=== PATIENT | male | born 1960 | race Hispanic/Latino ===

== ENCOUNTER 2021-02-24 14:14 | Outpatient (CLI) | payer BC | END 2021-02-24 14:15 | disposition home or self-care (01) | LOC: BICULT 14:14 | PROVIDERS: ATTEND Family Medicine | DX: N50.89 Other specified disorders of the male genital organs (principal); N43.3 Hydrocele, unspecified | CPT/HCPCS: 76870; 93976 ==

== ENCOUNTER 2021-07-05 10:28 | Outpatient (CLI) | payer BC ==
[2021-07-05 12:31] LABS: Bilirubin Neg (Negative); Blood, Urine Negative (Negative); Clarity Clear (Clear); Glucose, Urine (Dipstick) Normal (Negative); Ketone, Urine Negative (Negative); Leukocyte Negative (Negative); Nitrite Negative (Negative); Protein, Urine (Dipstick) Negative (Neg-Trace)
[2021-07-05 12:41] LABS: Hemoglobin 14.7 g/dL (13.5-17.5); Mean Corpuscular HGB CONC 33.6 g/dL (32.0-36.0); Mean Corpuscular Hemoglobin 30.4 pg (27.0-33.0); Mean Corpuscular Volume 90.5 fl (81.2-95.1); Mean Platelet Volume 12.3 fl (7.4-10.4); Platelet Count 159 10x3/uL (150-450); RBC Distribution Width 12.4 % (11.5-14.5); Red Blood Cell (RBC) Count 4.84 10x6/uL (4.32-5.72); White Blood Cell (WBC) Count 8.4 10x3/uL (3.5-10.5)
[2021-07-05 12:51] LABS: PTT 25.4 sec (22.0-33.0); Prothrombin Time 10.7 sec (9.5-12.1)
[2021-07-05 12:55] LABS: Anion Gap 12 mmol/L (10-20); BUN (Urea Nitrogen) 20 mg/dL (8.4-25.7); Calc. Creatinine Clearance 0 mL/min (70-130); Calcium 8.5 mg/dL (7.8-10.44); Carbon Dioxide 24 mmol/L (22-29); Chloride 106 mmol/L (98-107); Glucose 115 mg/dL (70-105); Potassium 3.8 mmol/L (3.5-5.1); Sodium 138 mmol/L (136-145)
[2021-07-05 13:07] LABS: Bacteria/HPF None Seen HPF (None Seen); RBC/HPF None Seen HPF (0-3); Squamous Epithelial 0-3 HPF (0-3); WBC/HPF None Seen HPF (0-3)
[2021-07-05 22:50] LABS: SARS-CoV-2 PCR by NAA Not Detected (NotDetected)
== END 2021-07-05 10:29 | disposition home or self-care (01) ==
LOC: LABBT 10:28
PROVIDERS: ATTEND Urology
DX: Z01.818 Encounter for other preprocedural examination (principal); N43.3 Hydrocele, unspecified; E11.9 Type 2 diabetes mellitus without complications; N52.9 Male erectile dysfunction, unspecified; E66.01 Morbid (severe) obesity due to excess calories; Z20.822 Contact with and (suspected) exposure to COVID-19
CPT/HCPCS: 80048; 81001; 85027; 85610; 85730; 87086; 93005; 93010; U0003; U0005

== ENCOUNTER 2021-07-08 05:44 | Day surgery (SDC) | payer BC ==
[2021-07-06 14:14] VITALS: BMI 40.4
[2021-07-08] MEDS ORDERED: ceFAZolin 2 GM/DEX 5% 100 ML BAG ONE (06:06)
[2021-07-08] MEDS ORDERED: Fentanyl 100 MCG/2 ML VIAL ONE (06:34)
[2021-07-08] MEDS ORDERED: SUGAMMADEX SODIUM 200 MG/2 ML VIAL ONE (06:35)
[2021-07-08] MEDS ORDERED: Phenylephrine 10 MG/ML VIAL ONE (06:35)
[2021-07-08] MEDS ORDERED: Bupivacaine 0.25% HCL 30 ML VIAL ONE (06:40)
[2021-07-08] MEDS ORDERED: Ondansetron PF 4 MG/2 ML Vial ONE (07:39)
[2021-07-08] MEDS ORDERED: Lidocaine 1% PF 5 ML VIAL ONE (07:39)
[2021-07-08] MEDS ORDERED: hydrALAZINE 20 MG/ML VIAL ONE (09:34)
[2021-07-08] MEDS ORDERED: HYDROcodone/Acetaminophen 5/325 mg Tablet ONE (11:17)
== END 2021-07-08 12:20 | disposition home or self-care (01) ==
LOC: SDC 05:44
PROVIDERS: ATTEND Urology
PROC: 0VB60ZZ Excision of Right Tunica Vaginalis, Open Approach (ICD-10-PCS; principal; 2021-07-08)
DX: N43.3 Hydrocele, unspecified (principal); E11.9 Type 2 diabetes mellitus without complications; I10 Essential (primary) hypertension; N52.9 Male erectile dysfunction, unspecified; E66.01 Morbid (severe) obesity due to excess calories; Z68.41 Body mass index [BMI] 40.0-44.9, adult; Z79.84 Long term (current) use of oral hypoglycemic drugs; Z79.899 Other long term (current) drug therapy
CPT/HCPCS: 88302; J0360; J2370; J2405; J3010; S0020

== ENCOUNTER 2021-08-01 17:51 | Inpatient (IN) | payer BC ==
[2021-08-01] MEDS ORDERED: Fentanyl 100 MCG/2 ML VIAL ONE (18:33)
[2021-08-01] MEDS ORDERED: Piperacillin/Tazobactam 4.5 GM VIAL ONE (18:35)
[2021-08-01] MEDS ORDERED: Vancomycin 1 GM/200 ML BAG ONE (18:36)
[2021-08-01 18:48] LABS: #Basophils 0.1 thou/uL (0.0-0.2); #Lymphocytes 1.4 thou/uL (1.20-3.40); #Monocytes 1.8 thou/uL (0.11-0.59); #Neutrophils 14.6 thou/uL (1.40-6.50); %Basophils 0.4 % (0.0-1.0); %Eosinophils 0.2 % (0.0-10.0); %Monocytes 9.9 % (0.0-10.0); %Neutrophils 81.5 % (42.0-75.0); Hemoglobin 13.5 g/dL (14.0-18.0); Mean Corpuscular HGB CONC 34.3 g/dL (32.0-36.0); Mean Corpuscular Hemoglobin 31.4 pg (27.0-31.0); Mean Corpuscular Volume 91.7 fL (78.0-98.0); Mean Platelet Volume 8.3 fL (7.4-10.4); Platelet Count 190 thou/uL (130-400); RBC Distribution Width 11.3 % (11.5-14.5); Red Blood Cell (RBC) Count 4.28 mill/uL (4.70-6.10); White Blood Cell (WBC) Count 17.9 thou/uL (4.8-10.8)
[2021-08-01] MEDS ORDERED: SUGAMMADEX SODIUM 200 MG/2 ML VIAL ONE (18:51)
[2021-08-01 18:59] LABS: INR-International Normal Ratio 1.2; PTT 31.2 sec (22.9-36.1); Prothrombin Time 15.7 sec (12.0-14.7)
[2021-08-01] MEDS ORDERED: Bisacodyl 10 MG SUPP PR PRN (19:05)
[2021-08-01] MEDS ORDERED: Dextrose 50% Abboject 50 ML SYRINGE SLOW IVP PRN (19:05)
[2021-08-01] MEDS ORDERED: diphenhydrAMINE 50 MG/ML VIAL IVP PRN (19:05)
[2021-08-01] MEDS ORDERED: Morphine 4 MG/ML VIAL SLOW IVP PRN ×2 (19:05→19:21)
[2021-08-01] MEDS ORDERED: hydrALAZINE 20 MG/ML VIAL SLOW IVP PRN ×2 (19:05)
[2021-08-01] MEDS ORDERED: Insulin Regular 300 UNITS/3 ML VIAL SC PRN (19:05)
[2021-08-01] MEDS ORDERED: HYDROcodone/Acetaminophen 5/325 mg Tablet PO PRN ×2 (19:05)
[2021-08-01] MEDS ORDERED: Ondansetron PF 4 MG/2 ML Vial IVP PRN (19:05)
[2021-08-01] MEDS ORDERED: Dextrose 5% in Water 1,000 ML IV PRN (19:05)
[2021-08-01 19:08] LABS: ALT (SGPT) 27 U/L (8-55); AST (SGOT) 18 U/L (5-34); Albumin 3.2 g/dL (3.5-5.0); Alkaline Phosphatase 102 U/L (40-110); Anion Gap 13 mmol/L (10-20); BUN (Urea Nitrogen) 14 mg/dL (8.4-25.7); Bilirubin, Total 1.2 mg/dL (0.2-1.2); Calc. Creatinine Clearance 0 mL/min (70-130); Calcium 8.8 mg/dL (7.8-10.44); Carbon Dioxide 22 mmol/L (22-29); Chloride 100 mmol/L (98-107); Globulin 4.7 g/dL (2.4-3.5); Glucose 154 mg/dL (70-105); Potassium 3.3 mmol/L (3.5-5.1); Protein, Total 7.9 g/dL (6.0-8.3); Sodium 132 mmol/L (136-145)
[2021-08-01] MEDS ORDERED: Lidocaine 1% PF 5 ML VIAL ONE (19:08)
[2021-08-01] MEDS ORDERED: PROPOFOL 200 MG/20 ML VIAL ONE (19:08)
[2021-08-01] MEDS ORDERED: Ondansetron PF 4 MG/2 ML Vial ONE (19:08)
[2021-08-01] MEDS ORDERED: Rocuronium Bromide 10 MG/ML (10ML VIAL) ONE (19:08)
[2021-08-01] MEDS ORDERED: PHENYLEPHRINE-NS 100 MCG/ML 10 ML SYRINGE ONE (19:08)
[2021-08-01] MEDS ORDERED: Neomycin-Polymyxin 1 ML AMP ONE (19:10)
[2021-08-01 19:32] LABS: SARS-CoV-2 NAA Rapid Test Not Detected (NotDetected)
[2021-08-01] MEDS ORDERED: Promethazine HCl 25 MG/ML VIAL IVPB PRN (20:10)
[2021-08-01] MEDS ORDERED: Promethazine HCl 25 MG/ML VIAL IM PRN (20:10)
[2021-08-01] MEDS ORDERED: Ondansetron HCl/PF 4 MG/2 ML Vial IVP PRN (20:10)
[2021-08-01] MEDS: Docusate 100 MG CAP PO SCH (21:25)
[2021-08-01] MEDS: Famotidine/PF 20 mg/2ml Vial SLOW IVP SCH (21:26)
[2021-08-01] MEDS: Rosuvastatin 10 MG TAB PO SCH (21:26)
[2021-08-01] MEDS: Piperacillin/Tazobactam 3.375 GM in Sodium Chloride 0.9% 100 ML IVPB SCH (21:27)
[2021-08-01] MEDS: Sodium Chloride 0.9% 1,000 ML IV SCH (21:27)
[2021-08-01] MEDS: glipiZIDE 10 MG TAB PO SCH (21:29)
[2021-08-01 21:31] VITALS: BMI 42.5
[2021-08-02] MEDS: Sodium Chloride 0.9% 1,000 ML IV SCH ×3 (04:00→20:15)
[2021-08-02] MEDS: Piperacillin/Tazobactam 3.375 GM in Sodium Chloride 0.9% 100 ML IVPB SCH ×3 (05:46→21:16)
[2021-08-02 06:47] LABS: #Eosinphils 0.2 thou/uL (0.0-0.7); #Lymphocytes 1.9 thou/uL (1.20-3.40); #Monocytes 1.3 thou/uL (0.11-0.59); #Neutrophils 9.6 thou/uL (1.40-6.50); %Basophils 0.3 % (0.0-1.0); %Eosinophils 1.9 % (0.0-10.0); %Lymphocytes 14.7 % (21.0-51.0); %Monocytes 9.9 % (0.0-10.0); %Neutrophils 73.3 % (42.0-75.0); Hemoglobin 12.2 g/dL (14.0-18.0); Mean Corpuscular Hemoglobin 31.8 pg (27.0-31.0); Mean Corpuscular Volume 93.3 fL (78.0-98.0); Platelet Count 184 thou/uL (130-400); RBC Distribution Width 11.4 % (11.5-14.5); Red Blood Cell (RBC) Count 3.84 mill/uL (4.70-6.10); White Blood Cell (WBC) Count 13.1 thou/uL (4.8-10.8)
[2021-08-02 07:05] LABS: Anion Gap 10 mmol/L (10-20); BUN (Urea Nitrogen) 11 mg/dL (8.4-25.7); Calc. Creatinine Clearance 146 mL/min (70-130); Calcium 8.5 mg/dL (7.8-10.44); Carbon Dioxide 26 mmol/L (22-29); Chloride 105 mmol/L (98-107); Glucose 78 mg/dL (70-105); Potassium 3.9 mmol/L (3.5-5.1); Sodium 137 mmol/L (136-145)
[2021-08-02] MEDS: Famotidine/PF 20 mg/2ml Vial SLOW IVP SCH ×2 (08:46→21:17)
[2021-08-02] MEDS: Tamsulosin HCl 0.4 MG CAP PO SCH (08:46)
[2021-08-02] MEDS: Docusate 100 MG CAP PO SCH ×2 (08:47→21:05)
[2021-08-02] MEDS: Alogliptin 6.25 MG TAB PO SCH (09:53)
[2021-08-02] MEDS: glipiZIDE 10 MG TAB PO SCH ×2 (09:54→21:22)
[2021-08-02] MEDS: Rosuvastatin 10 MG TAB PO SCH (21:22)
[2021-08-03] MEDS: Piperacillin/Tazobactam 3.375 GM in Sodium Chloride 0.9% 100 ML IVPB SCH ×3 (07:21→21:12)
[2021-08-03] MEDS: Docusate 100 MG CAP PO SCH ×2 (09:25→21:12)
[2021-08-03] MEDS: Famotidine/PF 20 mg/2ml Vial SLOW IVP SCH ×2 (09:26→21:09)
[2021-08-03] MEDS: Tamsulosin HCl 0.4 MG CAP PO SCH (09:26)
[2021-08-03] MEDS: Alogliptin 6.25 MG TAB PO SCH ×2 (09:27→09:28)
[2021-08-03] MEDS: glipiZIDE 10 MG TAB PO SCH ×2 (09:32→21:16)
[2021-08-03] MEDS: Sodium Chloride 0.9% 1,000 ML IV SCH ×2 (12:11→14:32)
[2021-08-03] MEDS: Rosuvastatin 10 MG TAB PO SCH (21:11)
[2021-08-04] MEDS: ALPRAZolam 0.5 MG TAB PO PRN (06:23)
[2021-08-04] MEDS: glipiZIDE 10 MG TAB PO SCH ×2 (09:29→17:20)
[2021-08-04] MEDS: Famotidine/PF 20 mg/2ml Vial SLOW IVP SCH ×2 (09:30→22:35)
[2021-08-04] MEDS: Docusate 100 MG CAP PO SCH ×2 (09:30→23:13)
[2021-08-04] MEDS: Tamsulosin HCl 0.4 MG CAP PO SCH (09:31)
[2021-08-04] MEDS: Sulfameth/Trimethoprim DS 800-160mg TAB PO SCH ×2 (09:31→23:13)
[2021-08-04] MEDS: Alogliptin 6.25 MG TAB PO SCH (12:22)
[2021-08-04] MEDS: Sodium Chloride 0.9% 1,000 ML IV SCH (15:11)
[2021-08-04] MEDS: Rosuvastatin 10 MG TAB PO SCH (23:13)
[2021-08-05] MEDS ORDERED: Sodium Bicarbonate 2.5 MEQ/5 ML VIAL ONE ×2 (09:16→11:33)
[2021-08-05] MEDS ORDERED: Lidocaine 1% PF 5 ML VIAL ONE (09:16)
[2021-08-05] MEDS ORDERED: Sodium Chloride 0.9% 10 ML ONE (09:16)
[2021-08-05] MEDS ORDERED: Midazolam HCl 2 mg/2 ml Vial ONE ×2 (09:17→11:33)
[2021-08-05] MEDS ORDERED: Fentanyl 100 MCG/2 ML VIAL ONE ×2 (09:17→11:33)
[2021-08-05] MEDS: ALPRAZolam 0.5 MG TAB PO PRN (09:18)
[2021-08-05] MEDS: Alogliptin 6.25 MG TAB PO SCH (09:20)
[2021-08-05] MEDS: glipiZIDE 10 MG TAB PO SCH ×2 (09:20→15:37)
[2021-08-05] MEDS: Famotidine/PF 20 mg/2ml Vial SLOW IVP SCH (09:21)
[2021-08-05] MEDS: Tamsulosin HCl 0.4 MG CAP PO SCH (09:21)
[2021-08-05] MEDS: Sulfameth/Trimethoprim DS 800-160mg TAB PO SCH (09:21)
[2021-08-05] MEDS: Docusate 100 MG CAP PO SCH (09:21)
[2021-08-05 16:21] VITALS: BP 135/88; TEMP 98.3
== END 2021-08-05 20:00 | disposition home or self-care (01) | DRG 857 ==
LOC: ERS 17:51 → SDC/OP 18:40 → SURG B 19:05 → OBSVTOIN 08-02 11:59
PROVIDERS: ADMIT Urology; ATTEND Urology
PROC: 0VC50ZZ Extirpation of Matter from Scrotum, Open Approach (ICD-10-PCS; principal; 2021-08-01)
PROC: 0JBB0ZZ Excision of Perineum Subcutaneous Tissue and Fascia, Open Approach (ICD-10-PCS; 2021-08-01)
PROC: 0T9B30Z Drainage of Bladder with Drainage Device, Percutaneous Approach (ICD-10-PCS; 2021-08-05)
DX: T81.49XA Infection following a procedure, other surgical site, initial encounter (principal); N99.841 Postprocedural hematoma of a genitourinary system organ or structure following other procedure; Z20.822 Contact with and (suspected) exposure to COVID-19; Y83.8 Other surgical procedures as the cause of abnormal reaction of the patient, or of later complication, without mention of misadventure at the time of the procedure; F17.210 Nicotine dependence, cigarettes, uncomplicated; B96.20 Unspecified Escherichia coli [E. coli] as the cause of diseases classified elsewhere; E66.01 Morbid (severe) obesity due to excess calories; E11.9 Type 2 diabetes mellitus without complications; I10 Essential (primary) hypertension; Z68.41 Body mass index [BMI] 40.0-44.9, adult; Z79.84 Long term (current) use of oral hypoglycemic drugs; Z79.899 Other long term (current) drug therapy; Z88.8 Allergy status to other drugs, medicaments and biological substances
CPT/HCPCS: 36415; 36416; 51102; 77002; 80048; 80053; 85025; 85610; 85730; 87040; 87070; 87077; 87186; 87205; 93005; 96374; 96375; 96376; C2627; G0378; J1815; J2250; J2270; J2405; J2543; J2704; J3010; J3370; J3490; J7050; S0028; U0002